=== PATIENT | male | born 1960 | race Caucasian/White ===

== ENCOUNTER 2017-02-22 10:23 | Emergency (ER) | payer BC ==
--- NOTE | ~2017-02-22 | CR21 ---
[facility] RADIOLOGY TEXT RESULTS PATIENT: GWENDOLYN MEDINA LOCATION: SED : 64 UNIT #: [id number] AGE: [address]: Sheryl Smith SEX: M ORDER DR: [id number] [place] [id number] E MR#: [id number] Acc #: [id number] NAME: GWENDOLYN MEDINA. : 1960 SEX: M STUDY DATE/TIME: 02/22/2017 10:49 UNIT: SED ROOM: STUDY DESCRIPTION: CR Ankle Min 3 Views Rt Attending Physician: Sheryl Smith Pa-C Ordering Physician: Sheryl Smith Pa-C Primary Care Physician: Murphy Zazueta M.D. MEDICAL IMAGING REPORT This report is preliminary unless electronic signature is present. EXAM Right ankle 3 views 02/22/17 10:49 hours HISTORY 56-year-old man with pain and swelling of the right ankle today. COMPARISON None. FINDINGS AP, lateral and oblique views demonstrate lower extremity edema extending over the ankle medial greater than lateral. There is no fracture, dislocation or significant degenerative change. There is calcaneal spurring at the plantar surface and posteriorly at the Achilles insertion. IMPRESSION 1. There is lower extremity edema with no fracture, dislocation or arthritic change. 2. There is calcaneal spurring at the Achilles insertion and at the plantar surface. Dictated by... Chen Henderson M.D. THIS IS AN ELECTRONICALLY VERIFIED REPORT Chen Henderson M.D. at 02/22/2017 2:30 PM FAITH/don TD: 02/22/2017 12:21 JOB #: [id number] [facility] RADIOLOGY TEXT RESULTS PATIENT: GWENDOLYN MEDINA LOCATION: SED : 64 UNIT #: [id number] AGE: [address]: Sheryl Smith SEX: M ORDER DR: MEDICAL IMAGING REPORT Page 1 of 1
[~2017-02-22 10:23] MED LIST: ASPIRINEC PO; FLEXERIL10 MG PO; IBUPROFEN800 MG PO; PROTONIX PO; RYTHMOL PO; TOPROL XL PO
[2017-02-22] MEDS ORDERED: PROTONIX PO (10:27)
[2017-02-22] MEDS ORDERED: LEXAPRO PO (10:27)
== END 2017-02-22 11:21 | disposition home or self-care (01) ==
LOC: SED 10:23
DX: M25.571 Pain in right ankle and joints of right foot (principal); F41.9 Anxiety disorder, unspecified; Z98.890 Other specified postprocedural states
CPT/HCPCS: 29540; 73610; 99283